=== PATIENT | male | born 1980 | race Hispanic/Latino ===

== ENCOUNTER 2018-07-11 21:31 | Emergency (ER) | payer OTHER ==
[2018-07-11 22:12] LABS: #Basophils 0.1 thou/uL (0.0-0.2); #Eosinphils 0.2 thou/uL (0.0-0.7); #Lymphocytes 3.1 thou/uL (1.20-3.40); #Monocytes 0.5 thou/uL (0.11-0.59); #Neutrophils 3.9 thou/uL (1.40-6.50); %Eosinophils 2.8 % (0.0-10.0); %Lymphocytes 39.1 % (21.0-51.0); %Monocytes 6.8 % (0.0-10.0); %Neutrophils 50.4 % (42.0-75.0); Hemoglobin 13.9 g/dL (14.0-18.0); Mean Corpuscular HGB CONC 33.5 g/dL (32.0-36.0); Mean Corpuscular Hemoglobin 30.7 pg (27.0-31.0); Mean Corpuscular Volume 91.6 fL (78.0-98.0); Mean Platelet Volume 8.2 fL (7.4-10.4); Platelet Count 127 thou/uL (130-400); RBC Distribution Width 11.6 % (11.5-14.5); Red Blood Cell (RBC) Count 4.52 mill/uL (4.70-6.10); White Blood Cell (WBC) Count 7.8 thou/uL (4.8-10.8)
[2018-07-11] MEDS ORDERED: methylPREDNISolone Sod Succ/PF 125 MG/2 ML VIAL ONE (22:15)
[2018-07-11] MEDS ORDERED: Famotidine 20 MG TAB ONE (22:15)
[2018-07-11] MEDS ORDERED: diphenhydrAMINE 50 MG/ML VIAL ONE (22:15)
[2018-07-11 22:30] LABS: ALT (SGPT) 13 U/L (8-55); AST (SGOT) 15 U/L (5-34); Alkaline Phosphatase 76 U/L (40-150); Anion Gap 12 mmol/L (10-20); BUN (Urea Nitrogen) 15 mg/dL (8.9-20.6); Bilirubin, Total 0.5 mg/dL (0.2-1.2); Calc. Creatinine Clearance 0 mL/min (70-130); Calcium 9.1 mg/dL (7.8-10.44); Carbon Dioxide 26 mmol/L (22-29); Chloride 103 mmol/L (98-107); Estimated GFR-MDRD Greater than 90; Globulin 2.8 g/dL (2.4-3.5); Glucose 103 mg/dL (70-105); Potassium 3.6 mmol/L (3.5-5.1); Protein, Total 6.8 g/dL (6.0-8.3); Sodium 137 mmol/L (136-145)
--- NOTE | 2018-07-11 22:39 | RAD ---
PORTABLE CHEST: 07/11/18 HISTORY: Dyspnea. Heart size is upper normal. Mild vascular engorgement. No focal infiltrate or consolidation. No signi ficant effusion. IMPRESSION: Mild vascular engorgement. POS: [facility]
== END 2018-07-11 23:24 | disposition still patient (30) ==
LOC: EEVIPCON 21:31 → ERS 21:31
DX: T78.40XA Allergy, unspecified, initial encounter (principal); J45.909 Unspecified asthma, uncomplicated
CPT/HCPCS: 36415; 71045; 80053; 85025; 94760; 96374; 96375; J1200; J2930

== ENCOUNTER 2018-08-12 22:04 | Emergency (ER) | payer OTHER ==
[~2018-08-12 22:04] MED LIST: ISOVUE-370 76%-LOCM 1 ML ONE
--- NOTE | 2018-08-12 22:38 | RAD ---
Radiograph chest one view: HISTORY: 38-year-old male with chest pain FINDINGS: Subtle finding of mildly increased attenuation at right lower lung zone, nonspecific. Otherwise no co nsolidation. Mild cardiomegaly. No beto pulmonary edema. No pneumothorax. IMPRESSION: No consolidation
[2018-08-12 22:52] LABS: #Basophils 0.1 thou/uL (0.0-0.2); #Eosinphils 0.3 thou/uL (0.0-0.7); #Lymphocytes 3.4 thou/uL (1.20-3.40); #Monocytes 0.6 thou/uL (0.11-0.59); #Neutrophils 3.9 thou/uL (1.40-6.50); %Basophils 0.7 % (0.0-1.0); %Eosinophils 4.2 % (0.0-10.0); %Lymphocytes 40.6 % (21.0-51.0); %Monocytes 7.7 % (0.0-10.0); %Neutrophils 46.8 % (42.0-75.0); Mean Corpuscular HGB CONC 33.9 g/dL (32.0-36.0); Mean Corpuscular Hemoglobin 30.8 pg (27.0-31.0); Mean Corpuscular Volume 90.9 fL (78.0-98.0); Mean Platelet Volume 7.8 fL (7.4-10.4); Platelet Count 140 thou/uL (130-400); RBC Distribution Width 11.4 % (11.5-14.5); Red Blood Cell (RBC) Count 4.54 mill/uL (4.70-6.10); White Blood Cell (WBC) Count 8.3 thou/uL (4.8-10.8)
[2018-08-12 23:14] LABS: ALT (SGPT) 14 U/L (8-55); AST (SGOT) 14 U/L (5-34); Albumin 3.7 g/dL (3.5-5.0); Alkaline Phosphatase 63 U/L (40-150); Anion Gap 10 mmol/L (10-20); BUN (Urea Nitrogen) 18 mg/dL (8.9-20.6); Bilirubin, Total 0.7 mg/dL (0.2-1.2); Calc. Creatinine Clearance 0 mL/min (70-130); Calcium 8.8 mg/dL (7.8-10.44); Carbon Dioxide 24 mmol/L (22-29); Chloride 106 mmol/L (98-107); Estimated GFR-MDRD Greater than 90; Globulin 2.6 g/dL (2.4-3.5); Glucose 88 mg/dL (70-105); Protein, Total 6.3 g/dL (6.0-8.3); Sodium 136 mmol/L (136-145)
--- NOTE | 2018-08-13 00:14 | CT ---
CT neck soft tissues with contrast: HISTORY: 38-year-old male with swollen left submandibular lymph node FINDINGS: There is a 17 x 10 x 12 mm calculus in the left submandibular gland, abutting the medial superior edg e of the left submandibular gland. There is mild fat stranding along the medial inferior aspect of the left submandibular gland. No evidence of intraglandular ductal ectasia involving bilateral subman dibular glands. No sialolith identified in Stensen's ducts or Warthin's ducts, but streak artifact from metallic dental work obscures portions of the oral cavity. Bilateral symmetrical enlargement of palatine tonsils. Minimal or mild enlargement of adenoids and lingual tonsil. Multiple bilateral shotty cervical lymph nodes at multiple levels. No abscess. No other abnormality identified, other th an the mildly enlarged lymph nodes, involving larynx, carotid space, parapharyngeal space, parotid space, retropharyngeal space, posterior cervical space, or brass wind instruments tube bender space. IMPRESSION: 1. Left submandibular sialolithiasis with a large 17 mm calculus associated with the left submandibul ar gland. 2. Evidence for at least mild left submandibular sialoadenitis.
== END 2018-08-13 01:41 ==
LOC: ERS 22:04
DX: K11.5 Sialolithiasis (principal); R07.89 Other chest pain; R20.2 Paresthesia of skin; J45.909 Unspecified asthma, uncomplicated
CPT/HCPCS: 36415; 70491; 71045; 80053; 84484; 85025; 93005; Q9966

== ENCOUNTER 2018-12-29 00:57 | Emergency (ER) | payer OTHER ==
[2018-12-29 01:23] LABS: #Basophils 0.1 thou/uL (0.0-0.2); #Eosinphils 0.4 thou/uL (0.0-0.7); #Lymphocytes 3.7 thou/uL (1.20-3.40); #Monocytes 0.5 thou/uL (0.11-0.59); #Neutrophils 3.4 thou/uL (1.40-6.50); %Basophils 1.1 % (0.0-1.0); %Eosinophils 4.7 % (0.0-10.0); %Lymphocytes 45.8 % (21.0-51.0); %Monocytes 5.6 % (0.0-10.0); %Neutrophils 42.8 % (42.0-75.0); Hemoglobin 14.3 g/dL (14.0-18.0); Mean Corpuscular HGB CONC 34.5 g/dL (32.0-36.0); Mean Corpuscular Hemoglobin 30.8 pg (27.0-31.0); Mean Corpuscular Volume 89.3 fL (78.0-98.0); Platelet Count 133 thou/uL (130-400); RBC Distribution Width 11.5 % (11.5-14.5); Red Blood Cell (RBC) Count 4.63 mill/uL (4.70-6.10)
[2018-12-29 01:43] LABS: ALT (SGPT) 15 U/L (8-55); AST (SGOT) 17 U/L (5-34); Albumin 3.9 g/dL (3.5-5.0); Alkaline Phosphatase 60 U/L (40-150); Anion Gap 11 mmol/L (10-20); BUN (Urea Nitrogen) 15 mg/dL (8.9-20.6); Bilirubin, Total 0.5 mg/dL (0.2-1.2); Calc. Creatinine Clearance 0 mL/min (70-130); Calcium 8.7 mg/dL (7.8-10.44); Carbon Dioxide 23 mmol/L (22-29); Chloride 106 mmol/L (98-107); Estimated GFR-MDRD Greater than 90; Globulin 2.4 g/dL (2.4-3.5); Glucose 99 mg/dL (70-105); Lipase 37 U/L (8-78); Potassium 4.1 mmol/L (3.5-5.1); Protein, Total 6.3 g/dL (6.0-8.3); Sodium 136 mmol/L (136-145)
[2018-12-29] MEDS ORDERED: Metoclopramide HCl 10 MG TAB ONE (02:14)
[2018-12-29] MEDS ORDERED: Ketorolac Tromethamine 60 MG/2 ML VIAL ONE (02:14)
[2018-12-29 03:16] LABS: Bilirubin Negative (Negative); Blood, Urine Negative (Negative); Clarity Clear (Clear); Glucose, Urine (Dipstick) Normal (Negative); Leukocyte Negative Leu/uL (Negative); Nitrite Negative (Negative); Protein, Urine (Dipstick) Negative (Neg-Trace); Urobilinogen Normal mg/dL (Less than 2)
--- NOTE | 2018-12-29 08:22 | CT ---
PRELIMINARY REPORT/[facility]/EMERGENCY AFTER HOURS PROCEDURE: EXAM: CT Head Without Contrast EXAM DATE/TIME: 12/29/2018 2:01 AM CLINICAL HISTORY: 38 years old, male; Patient HX: This is a 38 yo male no significant pmh who presents to the ED with a cc of a headache. He states that headache woke him up from sleep. The pain starts in his temporal lo be and radiates behind his ear. He describes the pain as stabbing and denies having anything like this before. He reports some numbness and tingling over his left temporal region. He denies nausea, v omiting, SOB, or any focal weakness TECHNIQUE: Imaging protocol: Computed tomography of the head without contrast. COMPARISON: No relevant prior studies available. FINDINGS: Brain: No hemorrhage. Unremarkable white matter. No mass effect. Ventricles: No ventriculomegaly. Bones/joints: No acute fracture. Sinuses: Visualized sinuses are unremarkable. No fluid levels. Mastoid air cells: Visualized mastoid air cells are well aerated. Soft tissues: Unremarkable. IMPRESSION: No acute intracranial abnormality. Thank you for allowing us to participate in the care of your patient. Dictated and Authenticated by: Yulisa Downing MD 12/29/2018 2:11 AM Central Time ([place] & [place]) FINAL REPORT HEAD CT WITHOUT CONTRAST: DATE: 12/29/2018. COMPARISON: None. HISTORY: Headache. FINDINGS: I agree with the preliminary [facility] report. Imaged paranasal sinuses and mastoid air cells are grossl y unremarkable. No displaced calvarial fracture. No intracranial hemorrhage, midline shift, or mass effect. IMPRESSION: No acute findings. POS: [facility]
--- NOTE | 2018-12-29 08:41 | RAD ---
FRONTAL RADIOGRAPH CHEST: DATE: 12/29/2018. COMPARISON: 08/12/2018. HISTORY: Chest pain with left-sided headache and numbness. FINDINGS: Stable prominence of the cardiac silhouette. No pneumothorax, pleural fluid, focal consolidation, or alveolar edema. IMPRESSION: No acute findings. POS: [facility]
--- NOTE | 2019-01-03 13:23 | EKG ---
Test Reason : Blood Pressure : / mmHG Vent. Rate : 056 BPM Atrial Rate : 056 BPM P-R Int : 152 ms QRS Dur : 080 ms QT Int : 408 ms P-R-T Axes : 017 005 -12 degrees QTc Int : 393 ms Sinus bradycardia Possible Inferior infarct , age undetermined Abnormal ECG Confirmed by MICHELLE PACHECO ([id number]), acquisition editor MARY BETH WATTS ([id number]) on 01/03/2019 1:23:10 PM Referred By: Confirmed By:MICHELLE PACHECO
== END 2018-12-29 03:22 ==
LOC: EEVIPCON 00:57 → ERS 00:57
DX: R51 Headache (principal); R07.9 Chest pain, unspecified
CPT/HCPCS: 36415; 70450; 71045; 80053; 81003; 83690; 84484; 85025; 93005; 96374; J1885; J8597